=== PATIENT | female | born 2000 | race Asian ===

== ENCOUNTER 2021-03-20 08:18 | Emergency (ER) | payer MEDICAID ==
[~2021-03-20] VITALS: Ht 152.4 cm; Wt 63.6 kg
[2021-03-20 08:25] VITALS: BP 122/75
[2021-03-20 09:15] LABS: COVID AG,FIA SOURCE NASOPHARYNGEAL
[2021-03-20 09:37] LABS: INFLUENZA TYPE A NEGATIVE FOR TYPE A (NEGATIVE); INFLUENZA TYPE B NEGATIVE FOR TYPE B (NEGATIVE)
== END 2021-03-20 10:08 | disposition home or self-care (01) ==
LOC: EMS 08:18
DX: U07.1 COVID-19 (principal)
CPT/HCPCS: 87426; 87804; 99283; U0003